=== PATIENT | male | born 1990 | race Two or more races ===

== ENCOUNTER 2016-12-11 04:48 | Emergency (ER) | payer OTHER ==
--- NOTE | ~2016-12-11 | CR7 ---
[facility] A Service of [facility] RADIOLOGY TEXT RESULTS PATIENT: JUAN ROE LOCATION: [facility] : [birth year] UNIT #: [id number] AGE: [address]: Caro Godoy MD SEX: M ORDER DR: [id number] [facility] [address] [place], [place] [address] [id number] E MR#: [id number] Acc #: [id number] NAME: JUAN ROE : 1990 SEX: M STUDY DATE/TIME: 12/11/2016 8:03 UNIT: [facility] ROOM: STUDY DESCRIPTION: CR Abdomen Single AP View Attending Physician: Caro Godoy M.D. Ordering Physician: Caro Godoy M.D. Primary Care Physician: No Primary Care Physician MEDICAL IMAGING REPORT This report is preliminary unless electronic signature is present EXAM AP of the abdomen. INDICATION 26-year-old male with right flank pain and nausea and history of ureterolithiasis. COMPARISON STUDIES Study is compared with CT of the abdomen and pelvis from earlier today. FINDINGS Stable stone in the right ureter and stable punctate stone in the right kidney. IMPRESSION No change compared with the CT scan from earlier today. Dictated by... Nav Valenzuela M.D. THIS IS AN ELECTRONICALLY VERIFIED REPORT Nav Valenzuela M.D. at 12/11/2016 4:55 PM CASANDRA/vita TD: 12/11/2016 09:37 JOB #: [id number] MEDICAL IMAGING REPORT COPY
--- NOTE | ~2016-12-11 | CT4 ---
[facility] A Service of [facility] RADIOLOGY TEXT RESULTS PATIENT: JUAN ROE LOCATION: [facility] : [birth year] UNIT #: [id number] AGE: [address]: Caro Godoy MD SEX: M ORDER DR: [id number] [facility] [address] [place], [place] [address] [id number] E MR#: [id number] Acc #: [id number] NAME: JUAN ROE : 1990 SEX: M STUDY DATE/TIME: 12/11/2016 6:16 UNIT: [facility] ROOM: STUDY DESCRIPTION: CT Abd and Pelv Wo Cont Attending Physician: Caro Godoy M.D. Ordering Physician: [place], [id number] Primary Care Physician: Primary Care Physician No MEDICAL IMAGING REPORT This report is preliminary unless electronic signature is present EXAM CT abdomen and pelvis without contrast INDICATIONS Right flank pain and nausea since 3 p.m. yesterday. TECHNIQUE Axial 3 mm images were obtained through the abdomen and pelvis without IV or oral contrast. This CT exam was performed with one or more of the following radiation dose reduction techniques: automatic exposure control, adjustment of mA and/or kV according to patient size, and iterative reconstruction. FINDINGS The lung bases are clear. The liver, gallbladder, spleen, pancreas, adrenal glands and left kidney are normal. The right kidney shows moderate hydronephrosis. There is a 3 mm nonobstructing stone in the lower pole right kidney. There is also a ureteral stone in the mid ureter measuring 6 mm in diameter. The aorta is normal in size. There is no adenopathy. The bowel is normal. The appendix is normal. The bladder and prostate gland are normal. Bones are unremarkable. IMPRESSION 1. 6 mm mid right ureteral stone with moderate hydronephrosis, 2. 3 mm nonobstructing right renal stone. Dictated by... González Andrade M.D. THIS IS AN ELECTRONICALLY VERIFIED REPORT González Andrade M.D. at 12/11/2016 9:51 AM FEL/marley [facility] A Service of [facility] RADIOLOGY TEXT RESULTS PATIENT: JUAN ROE [id number] : [birth year] UNIT #: [id number] AGE: [address]: Caro Godoy MD SEX: M ORDER DR: TD: 12/11/2016 09:01 JOB #: [id number] MEDICAL IMAGING REPORT COPY
[2016-12-11 05:31] LABS: BASOPHIL% 0.6 % (0-2.5); EOSINOPHIL% 0.2 % (0.0-7.0); HEMATOCRIT 43.6 % (38.0-50.0); HEMOGLOBIN 14.5 gm/dL (13.0-16.0); LYMPHOCYTE# 1.3 X10e3 (1.0-3.5); MEAN CELL VOLUME 86.8 FL (83-96); MEAN CORPUSCULAR HEMOGLOBIN 28.8 PG (28-34); MEAN CORPUSCULAR HGB CONC 33.2 g/dL (30-36); MEAN PLATELET VOLUME 7.8 FL (6.5-11.5); MONOCYTE# 0.5 X10e3 (0-1.0); MONOCYTE% 7.3 % (3.0-12.0); NEUTROPHIL# 5.5 X10e3 (1.5-7.1); NEUTROPHIL% 74.9 % (40-75); PLATELET COUNT 176 X10e3 (140-420); RED BLOOD COUNT 5.03 X10e (3.90-5.60); RED CELL DISTRIBUTION WIDTH 12.9 % (11.0-15.5); WHITE BLOOD COUNT 7.3 X10e3 (4.0-10.5)
[2016-12-11 05:34] LABS: DIFF IND NO
[2016-12-11 06:13] LABS: ALBUMIN SERUM 3.9 g/dL (3.5-5.0); ALKALINE PHOSPHATASE 151 U/L (32-92); ALT (SGPT) 15 U/L (10-40); AST (SGOT) 20 U/L (10-42); BILIRUBIN, DIRECT 0.1 mg/dL (0.0-0.2); BILIRUBIN,INDIRECT 1.2 mg/dL (0.0-0.9); BILIRUBIN,TOTAL 1.3 mg/dL (0.2-2.0); BLOOD UREA NITROGEN 18 mg/dL (9-23); CARBON DIOXIDE 25 mmol/L (22-31); CHLORIDE 105 mmol/L (100-111); CREATININE SERUM 1.2 mg/dL (0.6-1.4); GLOM FILT RATE Estimated ABOVE60 mL/min (>60); GLUCOSE FASTING 109 mg/dL (70-110); LIPASE 12 U/L (22-51); POTASSIUM 3.5 mmol/L (3.5-5.1); PROTEIN TOTAL SERUM 6.2 g/dL (6.0-8.3); SODIUM 138 mmol/L (135-145)
[2016-12-11 06:41] LABS: URINE SOURCE CLEAN CATCH
[2016-12-11 06:45] LABS: URINE APPEARANCE CLOUDY; URINE BILIRUBIN NEG (NEG); URINE BLOOD 2+ (NEG); URINE COLOR YELLOW; URINE GLUCOSE NEG (NEG); URINE KETONE 1+ (NEG); URINE LEUKOCYTE ESTERASE TRACE (NEG); URINE NITRATE NEG (NEG); URINE PROTEIN NEG (NEG); URINE SPECIFIC GRAVITY 1.024 (1.003-1.035)
[2016-12-11 06:48] LABS: U HYALINE CASTS AUWI 0-2 /[LPF]; URBCS1 AUWI 50-100 /[HPF] (0-2); URINE BACTERIA AUWI NEG (NEGATIVE); URINE SQUAMOUS EPITHELIAL CELL NONE SEEN /[HPF]
[2016-12-11 06:51] LABS: CULTURE INDICATED? NO
== END 2016-12-11 08:27 | disposition home or self-care (01) ==
LOC: CED 04:48
PROVIDERS: Emergency Medicine
DX: N13.2 Hydronephrosis with renal and ureteral calculous obstruction (principal); Z87.442 Personal history of urinary calculi
CPT/HCPCS: 36415; 74000; 74176; 80048; 80076; 81003; 83690; 85025; 96361; 96374; 96375; 99284; J1170; J1885; J2270; J2405

== ENCOUNTER → 2017-01-03 23:10 | Emergency (ER) | payer OTHER | END | disposition left against medical advice (07) | LOC: CED 23:10 | DX: Z53.21 Procedure and treatment not carried out due to patient leaving prior to being seen by health care provider (principal) ==